=== PATIENT | male | born 1990 | race Caucasian/White ===

== ENCOUNTER 2017-07-21 13:32 | Emergency (ER) | payer OTHER ==
[2017-07-21] MEDS ORDERED: CLINDAMYCIN150 MG PO (13:55)
== END 2017-07-21 14:15 | disposition home or self-care (01) ==
LOC: ED 13:32
DX: S71.111A Laceration without foreign body, right thigh, initial encounter (principal); R03.0 Elevated blood-pressure reading, without diagnosis of hypertension; Z88.0 Allergy status to penicillin; W45.8XXA Other foreign body or object entering through skin, initial encounter; Y93.89 Activity, other specified; Y92.89 Other specified places as the place of occurrence of the external cause; Y99.8 Other external cause status